=== PATIENT | male | born 1995 | race Caucasian/White ===

== ENCOUNTER → 2021-04-19 | Outpatient (CLI) | payer OTHER ==
--- NOTE | 2021-04-19 10:14 | PFTRPT ---
Height: 68.00 Inches Weight: 213.00 Lbs BSA: 2.10 Diagnosis: R06.00 DATE: 04/19/2021 ORDERING PHYSICIAN: ROSA ELENA Mullins Pre and post bronchodilator studies have excellent technical quality. Forced vital capacity is reduced. FEV1 is in proportion. Obstructive index is therefore normal. Expiratory limit of the flow-volume loop does suggest some nonspecific flow rate limitation. Only borderline bronchodilator response is identified. Total lung capacity is reduced. Residual volume is in proportion. Diffusing capacity is reduced but is appropriate for alveolar volume. Hemoglobin is acceptable at 17. Airway resistance and conductance are normal. IMPRESSION: Mild restrictive ventilatory impairment with borderline bronchodilator response. There is some nonspecific limitation. Please correlate clinically. MTDD
--- NOTE | 2021-04-19 10:25 | REP ---
INDICATION: DYSPNEA, UNSPECIFIED / PFT APPT 1ST COMPARISON: None. TECHNIQUE: PA and lateral. FINDINGS: The mediastinum and cardiac silhouette are normal. The lung guerrero are clear and without acute consolidation, effusion, or pneumothorax. The skeletal structures are intact and normal. IMPRESSION: No acute cardiopulmonary process. <Electronically signed by Joel Link > 04/19/21 [id number]
== END ==
LOC: M CARPUL 09:23
PROVIDERS: ATTEND Physician Assistant
DX: R06.00 Dyspnea, unspecified (principal)

== ENCOUNTER → 2021-07-15 | Outpatient (CLI) | payer OTHER ==
[~2021-07-15] MED LIST: ISOVUE-370 76% 100ML VIAL As Ordered ONE
--- NOTE | 2021-07-15 16:53 | REP ---
INDICATION: ABN FINDING, DYSPNEA, ABN OF PFT COMPARISON: None. TECHNIQUE: CT angiography of the chest after the intravenous administration of 75 cc Isovue 370. FINDINGS: There is excellent visualization of the pulmonary arterial vasculature. No focal filling defects are present that would be considered consistent with acute pulmonary emboli. The thoracic aorta is within normal limits. Note is made of an aberrant right subclavian artery. There are no pleural or pericardial effusions. The imaged upper abdomen is within normal limits. The imaged osseous structures are within normal limits. Evaluation of the lung guerrero shows 4 mm sized pleural base nodule in the socrates basal segment of the left lower lobe. There is also a pulmonary nodule seen in the inferior lingula which is pleural based measuring 4 mm. An additional 3 mm size nodule is seen in the left lower lobe. In the superior segment of the right lower lobe there is a pleural based 5 mm size nodule. IMPRESSION: 1. There is no evidence of a pulmonary embolism. 2. Multiple pulmonary nodules as described above. In this age group they are most probably benign. According to the revised Fleischner society criteria six-month follow-up examination is recommended. 3. Incidental aberrant right subclavian artery. <Electronically signed by Rolando Pascual > 07/15/21 [id number]
== END ==
LOC: M RAD 16:01
PROVIDERS: ATTEND Physician Assistant
DX: R91.8 Other nonspecific abnormal finding of lung field (principal); R06.00 Dyspnea, unspecified; R94.2 Abnormal results of pulmonary function studies
CPT/HCPCS: 71275; Q9967